=== PATIENT | male | born 1990 | race Caucasian/White ===

== ENCOUNTER 2022-01-26 21:14 | Emergency (ER) | payer SELFPAY ==
[~2022-01-26] VITALS: Ht 180.3 cm; Wt 90.7 kg
[2022-01-26 21:42] VITALS: BP 170/73
--- NOTE | 2022-01-26 21:45 | NUR ---
TO LOBBY A/W BED AMBULATORY
--- NOTE | 2022-01-27 01:43 | NUR ---
PT CALLED WITH NO ANSWER
--- NOTE | 2022-01-27 02:20 | NUR ---
PT CALLED IN LOBBY AND OUTSIDE WITH NO ANSWER. PATIENT LEFT WITHOUT BEING SEEN BY DR. CARRILLO. NO FURTHER CARE PROVIDED FOR PATIENT. Addendum: 01/27/22 at 251 by KelanGJ 251- PT RETURNED TO [facility] FOR EVALUATION
--- NOTE | 2022-01-27 02:52 | NUR ---
PT AMBULATED TO BED#3
[2022-01-27] MEDS ORDERED: KETOROLAC 60 MG/2 ML VIAL IM ONE (03:20)
[2022-01-27] MEDS ORDERED: IBUP-2213 PO (03:27)
== END 2022-01-27 03:35 | disposition home or self-care (01) ==
LOC: MED 21:14
DX: S60.221A Contusion of right hand, initial encounter (principal); F12.90 Cannabis use, unspecified, uncomplicated; W23.0XXA Caught, crushed, jammed, or pinched between moving objects, initial encounter; Y93.89 Activity, other specified; Y92.89 Other specified places as the place of occurrence of the external cause; Y99.8 Other external cause status
CPT/HCPCS: 73130; 96372; 99283; J1885